=== PATIENT | male | born 1970 | race Caucasian/White ===

== ENCOUNTER 2021-01-06 09:09 | Observation (INO) ==
[2021-01-06 10:58] LABS: ABS Basophils 0.1 10^3/ul (0-0.2); ABS Eosinophils 0.2 10^3/ul (0-0.6); ABS Lymphocytes 1.3 10^3/ul (1.0-4.8); ABS Monocytes 0.7 10^3/ul (0-0.8); ABS Neutrophils 4.2 10^3/ul (1.5-7.7); Eosinophil % 3.8 %; Hematocrit 42 % (42-52); Lymphocyte % 20.2 %; Mean Corpuscular HGB Conc 36 g/dL (31-36); Mean Corpuscular Hemoglobin 34 pg (27-31); Mean Corpuscular Volume 95 fL (80-94); Mean Platelet Volume 8.7 fL (7.4-10.4); Platelet Count 269 10^3/uL (150-450); Red Blood Count 4.42 10^6 /uL (4.18-5.48); Red Cell Distribution Width 14 % (10-15); White Blood Count 6.5 10^3/uL (3.5-10.8)
[2021-01-06 11:22] LABS: Albumin 4.1 g/dL (3.2-5.2); Albumin/Globulin Ratio 1.7 (1-3); Calcium 9.1 mg/dL (8.6-10.3); EGFR African American 98.4 (>60); EGFR Non-African American 81.3 (>60); Globulin 2.4 g/dL (2-4); Potassium 4.4 mmol/L (3.5-5.0); Total Bilirubin 0.8 mg/dL (0.2-1.0); Total Protein 6.5 g/dL (6.4-8.9)
[2021-01-06 11:26] LABS: INR 0.94 (0.86-1.15)
[2021-01-06] MEDS: PTO:Albuterol HFA INHALER 8 gm MDI INH PRN ×2 (18:23→22:18)
[2021-01-07] MEDS: PTO:Albuterol HFA INHALER 8 gm MDI INH PRN ×4 (02:22→15:13)
[2021-01-07 15:19] VITALS: BP 129/78
[2021-01-07 19:23] LABS: HDL Cholesterol 38.6 mg/dL
== END 2021-01-07 15:45 | disposition home or self-care (01) ==
LOC: ED 09:09 → MEDTELE 09:09
PROVIDERS: ADMIT Hospitalist; ATTEND Hospitalist